=== PATIENT | male | born 2000 | race Caucasian/White ===

== ENCOUNTER 2020-11-21 23:58 | Emergency (ER) | payer BC ==
[2020-11-22 00:49] LABS: HEMOGLOBIN 15.8 gm/dl (14.0-17.5); RED BLOOD COUNT 5.36 M/UL (4.20-5.50); WHITE BLOOD COUNT 8.5 K/UL (4.5-11.0)
[2020-11-22 01:11] LABS: BUN/CREATININE RATIO 15 (0-10)
[2020-11-22] MEDS ORDERED: PROTONIX40 MG PO (05:45)
[2020-11-22] MEDS ORDERED: ZOFRAN ODT 4 MG4 MG PO (05:45)
[2020-11-22] MEDS ORDERED: BENTYL 10MG CAP10 MG PO (05:45)
== END 2020-11-22 05:51 | disposition home or self-care (01) ==
LOC: ER1 23:58
PROVIDERS: Physician Assistant
DX: K29.70 Gastritis, unspecified, without bleeding (principal); Z90.89 Acquired absence of other organs
CPT/HCPCS: 36415; 80053; 80307; 81001; 83690; 85025; 87086; 99284; Q9967